=== PATIENT | male | born 1950 | race Two or more races ===

== ENCOUNTER 2024-07-26 15:46 | Emergency (ER) | payer OTHER ==
[~2024-07-26] VITALS: Ht 177.8 cm; Wt 100.0 kg
[2024-07-26] MEDS ORDERED: CEPH500C PO (17:47)
[2024-07-26] MEDS ORDERED: IBUP1TAB5 PO (17:47)
[2024-07-26] MEDS: TETANUS-DIPTH-ACEL PERTUSSIS 0.5ML SYR Tdap IM ONE (17:51)
[2024-07-26] MEDS: IBUPROFEN 600 MG TAB PO ONE (17:51)
[2024-07-26 17:57] VITALS: BP 146/86; PULSE 102; RESP 18; TEMP 98.2; O2SAT 95
== END 2024-07-26 17:57 | disposition home or self-care (01) ==
LOC: ER 15:46 → EDBD 15:46 → ER 17:57
DX: S81.012A Laceration without foreign body, left knee, initial encounter (principal); S51.811A Laceration without foreign body of right forearm, initial encounter; S80.211A Abrasion, right knee, initial encounter; I10 Essential (primary) hypertension; E11.9 Type 2 diabetes mellitus without complications; W18.39XA Other fall on same level, initial encounter; Y93.01 Activity, walking, marching and hiking; Y92.89 Other specified places as the place of occurrence of the external cause; Y99.8 Other external cause status
CPT/HCPCS: 12002; 73562; 90471; 90715